=== PATIENT | male | born 1985 | race Caucasian/White ===

== ENCOUNTER 2020-06-29 06:25 | Day surgery (SDC) | payer OTHER ==
[~2020-06-29] VITALS: Ht 180.3 cm; Wt 99.8 kg
[2020-06-29 07:39] VITALS: BP 114/67
== END 2020-06-29 08:30 | disposition home or self-care (01) | DRG 693 ==
LOC: ORM 06:25
PROVIDERS: ATTEND Urology
DX: N20.0 Calculus of kidney (principal); U07.1 COVID-19; Q63.1 Lobulated, fused and horseshoe kidney; Z53.09 Procedure and treatment not carried out because of other contraindication

== ENCOUNTER 2020-11-30 05:25 | Day surgery (SDC) | payer OTHER ==
[~2020-11-30] VITALS: Ht 180.3 cm; Wt 104.3 kg
[2020-11-30] MEDS ORDERED: TAMSULOSIN HCL0.4 MG PO (08:46)
[2020-11-30] MEDS ORDERED: PERCOCET 5/325M1 TAB PO (08:46)
[2020-11-30 11:33] VITALS: BP 118/79
== END 2020-11-30 11:15 | DRG 694 ==
LOC: ORM 05:25
PROVIDERS: ATTEND Urology
PROC: 0TF4XZZ Fragmentation in Left Kidney Pelvis, External Approach (ICD-10-PCS; principal; 2020-11-30)
DX: N20.0 Calculus of kidney (principal); Q63.1 Lobulated, fused and horseshoe kidney